=== PATIENT | female | born 1980 ===

== ENCOUNTER 2017-08-10 19:55 | Emergency (ER) | payer BC ==
[2017-08-10 20:07] VITALS: BP 124/82; PULSE 97; RESP 18; TEMP 101.4; O2SAT 97
[2017-08-10] MEDS ORDERED: Dexamethasone 4 mg/1 ml IM STA (20:26)
[2017-08-10] MEDS ORDERED: Dexamethasone 4 mg/1 ml ONE (20:48)
--- NOTE | 2017-08-10 20:57 | C.PDOC ---
History Of Present Illness Marge Romero is a 36 year old female, with a past medical history of hypothyroidism, who presents to the emergency department complaining of sore throat onset for x1 day and fever since today. Patient states she was at work, she had a drill and went outside with no clothes. She developed a fever right after. She denies any other medical complaints. PMD: None provided. Time Seen by Provider: 08/10/17 20:20 Chief Complaint (Nursing): ENT Problem History Per: Patient History/Exam Limitations: no limitations Onset/Duration Of Symptoms: Days (x3) Current Symptoms Are (Timing): Still Present Location Of Pain: Throat (sore) Sick Contacts (Context): None Associated Symptoms: Fever Ear Symptoms: Bilateral: None Pain Scale Rating Of: 6 Past Medical History Reviewed: Historical Data, Nursing Documentation, Vital Signs Vital Signs: Last Vital Signs Temp 101.4 F H 08/10/17 20:02 Pulse 97 H 08/10/17 20:02 Resp 18 08/10/17 20:02 BP 124/82 08/10/17 20:02 Pulse Ox 97 08/10/17 21:03 - Medical History PMH: Hypothyroidism Surgical History: No Surg Hx Family History: States: Unknown Family Hx - Social History Hx Tobacco Use: No Hx Alcohol Use: No Hx Substance Use: No - Immunization History Hx Tetanus Toxoid Vaccination: No Hx Influenza Vaccination: No Hx Pneumococcal Vaccination: No Review Of Systems Except As Marked, All Systems Reviewed And Found Negative. Constitutional: Positive for: Fever ENT: Positive for: Throat Pain (sore ) Physical Exam - Physical Exam Appears: Non-toxic, No Acute Distress Skin: Normal Color, Warm, Dry Head: Atraumatic, Normacephalic Eye(s): bilateral: Normal Inspection, PERRL, EOMI Ear(s): Bilateral: Normal Nose: Normal Throat: Erythema (pharyngeal and tonsil), Exudate (tonsil) Neck: Normal, Normal ROM, Supple Cardiovascular: Rhythm Regular Respiratory: Normal Breath Sounds, No Accessory Muscle Use Gastrointestinal/Abdominal: Normal Exam, Soft, No Tenderness Extremity: Normal ROM, No Deformity, No Swelling Neurological/Psych: Oriented x3, Normal Speech Gait: Steady ED Course And Treatment O2 Sat by Pulse Oximetry: 97 (RA) Pulse Ox Interpretation: Normal Medical Decision Making Medical Decision Making: Initial Impression: Fever and sore throat Initial Plan: --Amoxicillin 500 mg PO --Decadron Inj 8 mg IM --reevaluation Disposition - Disposition Referrals: Non [facility] Provider, [Primary Care Provider] - Disposition: HOME/ ROUTINE Disposition Time: 21:06 Condition: STABLE Additional Instructions: Follow up with PMD within 1-2 days. Return to Ed if feel worse. Prescriptions: Amoxicillin 500 mg PO Q8 #30 tab Ibuprofen [Motrin Tab] 600 mg PO Q8 #30 tab Instructions: Pharyngitis (ED) Forms: [employer] (E[place]ian) - Clinical Impression Clinical Impression: Pharyngitis - Scribe Statement Zachariah Spicer All medical record entries made by the Scribe were at my direction and personally dictated by me. I have reviewed the chart and agree that the record accurately reflects my personal performance of the history, physical exam, medical decision making, and the department course for this patient. I have also personally directed, reviewed, and agree with the discharge instructions and disposition.
== END 2017-08-10 21:12 | disposition home or self-care (01) ==
LOC: SUPCPDRO 19:55 → C.ER 19:55
DX: J02.9 Acute pharyngitis, unspecified (principal)
CPT/HCPCS: 96372; 99283; J1100